=== PATIENT | male | born 1950 | race Caucasian/White ===

== ENCOUNTER 2020-03-03 12:54 | Emergency (ER) | payer MEDICARE, OTHER ==
[~2020-03-03] VITALS: Ht 175.3 cm; Wt 100.0 kg
[2020-03-03 13:25] LABS: HEMATOCRIT 44.2 % (39.0-50.0); HEMOGLOBIN 14.6 g/dl (14.0-18.0); IMMATURE GRANULOCYTES 0.2 % (0.0-5.0); MEAN CELL VOLUME 88.4 fL CALC (80.0-100.0); MEAN CORPUSCULAR HGB 29.2 pG CALC (26.0-32.0); NEUT# 5.15 thou/uL (1.82-7.42); RED CELL DISTRI WIDTH 13.3 % (11.5-15.5)
[2020-03-03] MEDS ORDERED: LEVOTHYROXIN50 MCG PO (13:30)
[2020-03-03] MEDS ORDERED: LOSARTAN POTASS50 MG PO (13:30)
[2020-03-03] MEDS ORDERED: NORVASC5 M1 PO (13:30)
[2020-03-03] MEDS ORDERED: CLOBETASOL0.053 EX (13:31)
[2020-03-03] MEDS ORDERED: FLUOCINOLONE A0.011 OT (13:31)
[2020-03-03] MEDS ORDERED: [UNRECOGNIZED DRUG - OTHER] EX (13:32)
[2020-03-03] MEDS ORDERED: ZANTAC 150 PO (13:33)
[2020-03-03] MEDS ORDERED: CVS OMEPRAZOLE20 M1 PO (13:34)
[2020-03-03] MEDS ORDERED: MULTI VIT PO (13:34)
[2020-03-03 13:48] LABS: ALBUMIN 4.3 g/dL (3.2-5.0); ALKALINE PHOSPHATASE 73 u/l (38-126); ANION GAP 12 (6-22 (CALC)); BILIRUBIN, TOTAL 0.7 mg/dL (0.0-1.4); BUN 11 mg/dL (8-23); BUN/CREATININE RATIO 11 (12-20 (CALC)); CARBON DIOXIDE 23 mmol/l (22-30); CHLORIDE 104 mmol/l (95-108); GFR > 60 ML/MIN (>=60 (CALC)); GFR FOR AFR.AMER. > 60 ML/MIN (>=60 (CALC)); POTASSIUM 3.7 mmol/l (3.5-5.1); SGOT/AST 36 u/l (19-48); SODIUM 136 mmol/l (137-146); TOTAL PROTEIN 7.8 g/dL (6.3-8.2)
[2020-03-03] MEDS ORDERED: TESSALON PERLE100 MG PO (15:12)
[2020-03-03 15:25] VITALS: BP 127/59
== END 2020-03-03 15:24 | disposition home or self-care (01) ==
LOC: ED 12:54
DX: B34.9 Viral infection, unspecified (principal); R73.9 Hyperglycemia, unspecified; K21.9 Gastro-esophageal reflux disease without esophagitis; F17.200 Nicotine dependence, unspecified, uncomplicated; Z20.822 Contact with and (suspected) exposure to COVID-19